=== PATIENT | female | born 1985 | race Caucasian/White ===

== ENCOUNTER → 2016-06-04 | Outpatient (CLI) | payer OTHER ==
[~2016-06-04] MED LIST: CEFP500T4 PO; MPR22T TOP; PRD5T PO
--- NOTE | 2016-06-04 15:24 | Diagnostic Imaging Report ---
Transabdominal and transvaginal pelvic ultrasound. INDICATION: Menorrhagia. FINDINGS: The uterus is 7 x 4.1 x 3.3 cm in size. The endometrial stripe is 0.8 cm in thickness. The myometrium is slightly heterogenous with no discrete mass. The right ovary is 2.8 x 2.4 x 3.1 cm. The left ovary is 3.4 x 2.2 x 3.3 cm. Both ovaries demonstrate color Doppler with arterial and venous waveforms demonstrated over the right ovary and venous waveforms over the left ovary seen. No adnexal mass or fluid collection seen. IMPRESSION: Slightly heterogenous myometrium with no discrete mass. Dictated by: Dictated on workstation # [id number]
== END ==
LOC: RAD 09:36
PROVIDERS: ATTEND Nurse Practitioner Adult Health
DX: N92.1 Excessive and frequent menstruation with irregular cycle (principal)
CPT/HCPCS: 76830; 76856

== ENCOUNTER 2016-10-22 11:48 | Outpatient (CLI) | payer OTHER ==
[~2016-10-22] VITALS: Ht 157.5 cm; Wt 131.5 kg
[2016-10-22] MEDS ORDERED: METF500T4 PO (12:35)
[2016-10-22] MEDS ORDERED: METO-351 PO (12:35)
[2016-10-22] MEDS ORDERED: OMEG100032 PO (12:35)
== END 2016-10-22 12:49 ==
LOC: PREOP 11:48
PROVIDERS: ATTEND Obstetrics & Gynecology
DX: Z01.818 Encounter for other preprocedural examination (principal); N92.0 Excessive and frequent menstruation with regular cycle

== ENCOUNTER 2016-10-24 05:49 | Day surgery (SDC) | payer OTHER ==
[~2016-10-24] VITALS: Ht 157.5 cm; Wt 131.5 kg
[~2016-10-24 05:49] MED LIST changes: +METF500T4 PO; +METO-351 PO; +OMEG100032 PO
[2016-10-24] MEDS ORDERED: LACTATED RINGERS 1,000 ML IV PRN (06:33)
[2016-10-24 07:00] VITALS: BP 133/87
[2016-10-24] MEDS ORDERED: metroNIDAZOLE 500 MG/100 ML IVPB (PRE-MIX) IV ONE (07:00)
[2016-10-24] MEDS ORDERED: ceFAZolin 1 GM/NS 50 ML IVPB IV ONE ×2 (07:00)
--- NOTE | 2016-10-24 07:08 | History & Physical-Surgical ---
HPO-Surgical History of Present Illness Chief Complaint: menorrhagia not controlled with conservative measures. Diagnosis/Surgical Indication: menorrhagia Procedure: D&C, hysteroscopy, novasure Weight (Pounds): 290 Weight (Ounces): 0.0 Height (Feet): 5 Height (Inches): 2.00 Allergies and Home Medications Allergies Coded Allergies: No Known Drug Allergies (Unverified , 08/04/10) Home Medications Metformin HCl 500 Mg Tablet, 500 MG PO BID, (Reported) Metoprolol Succinate 25 Mg Tab.er.24h, 25 MG PO HS, (Reported) [place]-3/Dha/Epa/Fish Oil 1,000 Mg Capsule, 1,000 MG PO DAILY, (Reported) Past Qvwjqco-Xaogjx-Szbqcd Hx Patient Social History Marrital Status: Number of Children: 0 Employed/Student: part-time employed Recent Foreign Travel: No Contact w/other who traveled: No Recent Hopitalizations: No Seasonal Allergies Seasonal Allergies: No Surgeries HX Surgeries: No Respiratory Hx Respiratory Disorders: No Cardiovascular Hx Cardiovascular Disorders: Yes Cardiac Disorders: Hypertension Neurological Hx Neurological Disorders: No Reproductive System : No Hx : 0 Hx Para: 0 Hx Total # of Abortions (Spona: 0 Hx Reproductive Disorders: Yes Female Reproductive Disorders: Polycystic Ovarian Dis Genitourinary Hx Genitourinary Disorders: No Gastrointestinal Hx Gastrointestinal Disorders: No Musculoskeletal Hx Musculoskeletal Disorders: No Endocrine Hx Endocrine Disorders: Yes (prediabetic, PCOS) HEENT HX ENT Disorders: No Cancer Hx Cancer: No Psychosocial Hx Psychiatric Problems: No Integumentary HX Skin/Integumentary Disorder: No Blood Transfusions Hx Blood Disorders: No Exam Vital Signs please see RN notes Capillary Refill : Labs Laboratory Tests Test 10/24/16 06:17 Range/Units Urine Test NEGATIVE NEGATIVE General Appearance: Alert, Oriented X3 Respiratory: Clear to Auscultation, Normal Air Movement Cardiovascular: Regular Rate Assessment/Plan Assessment and Plan Menorrhagia not improved with conservative measures. Plan: hysteroscopy, dilation and curettage. Novasure endometrial ablation Risks of surgery include bleeding, infection, injury to bowel, bladder and ureter. Also risks of anesthesia. She understands that she is not to achieve due to the surgery. She has had infertility and does not desire . Understands there is a 40-50% chance of amenorrhea but a 70-80% success rate with decreased bleeding. She desires to proceed with surgery. Has continued OCP until yesterday and has held Metformin last night. Did take beta david last night. Will use prophylactic antibiotics and SCDs. Consents have been signed. Problems: LUCAS RUST DO Oct 24, 2016 07:08
[2016-10-24] MEDS ORDERED: fentaNYL INJECTION 100 MCG/2 ML AMP ONE (07:09)
[2016-10-24] MEDS ORDERED: MIDAZOLAM 2 MG/2 ML (VERSED) VIAL ONE (07:09)
[2016-10-24] MEDS ORDERED: proPOfol 200 MG/20 ML (DIPRIVAN) VIAL IV ONE (07:09)
--- NOTE | 2016-10-24 07:21 | Progress Note-Pre Operative ---
Pre-Operative Progress Note H&P Reviewed The H&P was reviewed, patient examined and no changes noted. Time Seen by Provider: 07:00 Date H&P Reviewed: Oct 24, 2016 Time H&P Reviewed: 06:55 Pre-Operative Diagnosis: menorrhagia, will use ocps for contraception until vasectomy or risk reduci LUCAS RUST DO Oct 24, 2016 07:21
--- NOTE | 2016-10-24 07:57 | Operative Report ---
Operative Report Date of Procedure/Surgery Oct 24, 2016 Surgeon (s) LUCAS RUST DO Electronics Hardware Design Engineer (s): none needed Post-Operative Diagnosis Menorrhagia, not responsive to conservative measures. Normal endometrial thickness. Procedure Performed Hysteroscopy, dilation and curettage, novasure endometrial ablation Description of Procedure Anesthesia Type: General Estimated blood loss (mL): minimal Specimen(s) collected/removed endometrial curettings. Description of the Procedure Indications - This is 31 year old G0 with a several month history of menorrhagia. Multiple regimens of hormonal manipulation have been used but she has continued to have breakthrough bleeding with unsatisfactory bleeding profile. US done in 06/13 was negative with endometrial lining 0.8cm. The lining was slightly heterogenous. uterus normal. She has not had a tubal ligation and was told she had infertility and has chosen not to achieve . However, she would like to have a risk reducing salpingectomy when she is able. She will continue OCPs until that time for contraception. With informed consent, the patient was taken to the recovery room in stable condition. She took her beta david last night and held the metformin. The fasting bs this am was 100. On the way to the OR she informed me that she had had some pain in the vulva on the right side yesterday and today. Has been having to wear a pad continually. She has not looked but hasn't noted a mass, lesion, sore, etc. No discharge but she has continued to have bleeding so she is not sure. In addition, has not noted itching, but states she does have an odor. She was prepped and draped in the usual sterile fashion. Prior to prep I examined her. She has erythema and satellite lesions in the groin and redness on the vulva and perianally consistent with yeast and contact dermatitis.There is no mass or lesion noted. The vagina appears normal except intact hymen. The bladder was drained with a straight cath of clear yellow urine. A weighted speculum was placed in the vagina. The cervix grasped with a sharp toothed tenaculum. The cervix gently dilated with Arsen dilators to allow the Sure Sound. The uterus was sounded to 6.3 cm. The cervix was then gently dilated to allow insertion of the hysteroscope. The hysteroscopy was done and revealed no abnormal endometrial pathology. Once I removed the scope, I did a gentle curettage and this tissue was sent for pathology. There was minimal tissue removed. I then inserted the NovaSure device and further measurements were taken. The width 3.0 and power 107. A compliance test was done and once the test was passed, the device was enabled. The ablation was then done and there was a time of 54 seconds. The procedure halted automatically and the NovaSure was removed without difficulty. The hysteroscope was reinserted and confirmed an even ablation. There was no bleeding. The tenaculum was removed and the instruments removed. Patient awakened and taken to recovery in a stable condition. Sponge, instrument counts correct times two. Findings of the Procedure Normal proliferation endometrium with no pathologic findings. Contact vulvar dermatitis and candidiasis. Allergies and Home Medications Allergies Coded Allergies: No Known Drug Allergies (Unverified , 08/04/10) Home Medications Metformin HCl 500 Mg Tablet, 500 MG PO BID, (Reported) Metoprolol Succinate 25 Mg Tab.er.24h, 25 MG PO HS, (Reported) [place]-3/Dha/Epa/Fish Oil 1,000 Mg Capsule, 1,000 MG PO DAILY, (Reported) LUCAS RUST DO Oct 24, 2016 07:57
[2016-10-24] MEDS ORDERED: IBUP-1773 PO (08:13)
[2016-10-24] MEDS ORDERED: HYDR-3812 PO (08:13)
[2016-10-24] MEDS ORDERED: KETOROLAC 30 MG/ML VIAL IVP ONE ×2 (08:15)
[2016-10-24] MEDS ORDERED: ONDANSETRON 4 MG/2 ML (SDV) Z0FRAN IVP PRN (08:15)
[2016-10-24] MEDS ORDERED: HYDROcodone/APAP 5 MG/325 MG (LORTAB) TAB PO PRN (08:15)
--- NOTE | 2016-10-24 08:18 | Discharge Inst-Women's Service ---
Discharge Inst-Women's Serv Depart Medication/Instructions New, Converted or Re-Newed RX: RX on Chart Instructions Mycolog II rx sent to pharmacy. Final Diagnosis menorrhagia vulvar candidiasis contact dermatitis Consults/Follow Up Additional Follow Up: Yes (1-2 weeks with [facility]) Activity Activity: Activity as Tolerated Driving Instructions: No Driving for 24 Hours NO SMOKING: NO SMOKING Nothing Inside Vagina: No Douching, No [place], No Tampons Other Activity until follow up Diet Discharge Diet: No Restrictions Symptoms to Report to : Swelling Increased, Pain Increased, Fever Over 101 Degrees F, Vaginal Bleeding Increase, Vaginal Discharge Foul expect spotting for up to 1 week and expect increase in discharge at 10-14 days that should last a few days For Any Problems or Questions: Contact Your Physician LUCAS RUST DO Oct 24, 2016 08:18
[2016-10-24] MEDS: morphine INJ 10 MG/ML 1ML (SYR OR VIAL) IVP PRN ×2 (08:30→08:54)
[2016-10-24] MEDS ORDERED: SEVOFLURANE (ULTANE) 15 ML INHAL SOLN ONE (08:39)
[2016-10-24] MEDS ORDERED: LACTATED RINGERS 1,000 ML IV ONE (08:39)
[2016-10-24] MEDS ORDERED: ONDANSETRON 4 MG/2 ML (SDV) Z0FRAN ONE (08:39)
[2016-10-24 09:05] VITALS: BP 107/70
[2016-10-24 09:35] VITALS: BP 119/75
[2016-10-24 10:05] VITALS: BP 99/57
[2016-10-24] MEDS ORDERED: IBUPROFEN 600 MG (MOTRIN) TAB PO SCH (14:00)
== END 2016-10-24 10:25 | disposition home or self-care (01) ==
LOC: SDC 05:49
PROVIDERS: ATTEND Obstetrics & Gynecology
DX: N92.0 Excessive and frequent menstruation with regular cycle (principal); I10 Essential (primary) hypertension; E28.2 Polycystic ovarian syndrome; E66.01 Morbid (severe) obesity due to excess calories; Z68.43 Body mass index [BMI] 50.0-59.9, adult; Z79.84 Long term (current) use of oral hypoglycemic drugs; Z79.899 Other long term (current) drug therapy
CPT/HCPCS: 82962; 84703; 87081